=== PATIENT | female | born 1985 | race Caucasian/White ===

== ENCOUNTER 2020-06-21 20:01 | Emergency (ER) | payer OTHER ==
[~2020-06-21] VITALS: Ht 167.6 cm; Wt 79.5 kg
[2020-06-21 20:57] LABS: BASO % 1 % (0-3); EOS # 0.2 x10^3/uL (0.0-0.7); EOS % 2 % (0-3); HEMATOCRIT 41.9 % (36.0-47.0); HEMOGLOBIN 14.6 g/dL (12.0-15.5); LYMPH # 2.1 x10^3/uL (1.0-4.8); LYMPH % 23 % (24-48); MEAN CORPUSCULAR HEMOGLOBIN 37 pg (25-35); MEAN CORPUSCULAR HGB CONC 35 g/dL (31-37); MEAN CORPUSCULAR VOLUME 105 fL (79-100); MONO # 0.6 x10^3/uL (0.0-1.1); MONO % 6 % (0-9); NEUT # 6.2 x10^3uL (1.8-7.7); NEUT % 68 % (31-73); PLATELET COUNT 158 x10^3/uL (140-400); RED BLOOD COUNT 4.01 x10^6/uL (3.50-5.40); RED CELL DISTRIBUTION WIDTH 12.9 % (11.5-14.5); WHITE BLOOD COUNT 9.1 x10^3/uL (4.0-11.0)
[2020-06-21 21:06] LABS: CALCIUM 8.9 mg/dL (8.5-10.1); CREATININE 0.6 mg/dL (0.6-1.0); GFR 115.9; POTASSIUM 3.6 mmol/L (3.5-5.1)
--- NOTE | 2020-06-21 21:17 | PHYS DOC ---
Past History Past Medical History: No Pertinent History, Anxiety, Bronchitis, Hypertension Past Surgical History: No Surgical History Smoking: Non-smoker Alcohol Use: None General Adult EDM: Chief Complaint: CHEST PAIN HPI: HPI: ".. I got this.. Chest pain'... Not really chest pain but squeezing discomfort in the center my chest and it has not stopped tonight.... Started about 5 PM has been somewhat constant since then...".. "It seems..like I am having a fast heart rate.." Patient is a 34 year old female who presents with above hx and complaints of chest pain/ chest discomfort. Pain is in center chest. Described as squeezing type discomfort. Has been constant since approximately 1715 hrs. Patient states felt like her heart rate was increased with the discomfort. Patient denies any previous history of cardiac problems. Does have a history of hypertension. Patient states she is having some nonproductive cough. Pain seems to be worse with deep breaths and cough. Patient states she is under some recent emotional stress. Patient denies history of trauma. Patient denies any history immunosuppression. Patient has past history of anxiety, patient did get Covid vaccination second was completed on April 05.. 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 Patient normally follows with Dr. Colbert for care. Review of Systems: Review of Systems: Constitutional: Denies fever or chills Eyes: Denies change in visual acuity HENT: Denies nasal congestion or sore throat Respiratory: Complains of nonproductive cough Cardiovascular: Complaints of chest pain. GI: Denies abdominal pain, nausea, vomiting, bloody stools or diarrhea : Denies dysuria Musculoskeletal: Denies back pain or joint pain Integument: Denies rash Neurologic: Denies headache, focal weakness or sensory changes Endocrine: Denies polyuria or polydipsia Lymphatic: Denies swollen glands Psychiatric: History of anxiety Family History: Family History: Noncontributory presentation. Current Medications: Current Meds: Current Medications Medications (Trade) Dose Ordered Sig/Roosevelt Start Time Stop Time Status Last Admin Dose Admin Aspirin (Tylor Aspirin) 325 mg 1X ONCE 06/21/20 21:30 06/21/20 21:31 Clonidine HCl (Catapres Tts-2) 1 patch 1X ONCE 06/21/20 21:30 06/21/20 21:31 Allergies: Allergies: Allergies Coded Allergies Type Severity Reaction Last Updated Verified No Known Drug Allergies 06/21/20 No Physical Exam: PE: Constitutional: Moderate acute distress, non-toxic appearance. [] HENT: Normocephalic, atraumatic, bilateral external ears normal, oropharynx moist, no oral exudates, nose normal. [] Eyes: PERRLA, EOMI, conjunctiva normal, no discharge. [] Neck: Normal range of motion, no tenderness, supple, no stridor. [] Cardiovascular: Tachycardia heart rate regular rhythm, no murmur [] Lungs & Thorax: Bilateral breath sounds equal apex with few scattered wheezes and some basilar crackles on auscultation [] Abdomen: Bowel sounds normal, soft, no tenderness, no masses, no pulsatile masses. Obese. Skin: Warm, dry, no erythema, no rash. [] Back: No tenderness, no CVA tenderness. [] Extremities: No tenderness, no cyanosis, no clubbing, ROM intact, no edema. No cording appreciated Neurologic: Alert and oriented X 3, normal motor function, normal sensory function, no focal deficits noted. [] Psychologic: Affect very anxious, judgement normal, mood normal. [] Current Patient Data: Labs: Laboratory Tests Test 06/21/20 20:18 06/21/20 21:02 White Blood Count 9.1 x10^3/uL (4.0-11.0) Red Blood Count 4.01 x10^6/uL (3.50-5.40) Hemoglobin 14.6 g/dL (12.0-15.5) Hematocrit 41.9 % (36.0-47.0) Mean Corpuscular Volume 105 fL (79-100) H Mean Corpuscular Hemoglobin 37 pg (25-35) H Mean Corpuscular Hemoglobin Concent 35 g/dL (31-37) Red Cell Distribution Width 12.9 % (11.5-14.5) Platelet Count 158 x10^3/uL (140-400) Neutrophils (%) (Auto) 68 % (31-73) Lymphocytes (%) (Auto) 23 % (24-48) L Monocytes (%) (Auto) 6 % (0-9) Eosinophils (%) (Auto) 2 % (0-3) Basophils (%) (Auto) 1 % (0-3) Neutrophils # (Auto) 6.2 x10^3uL (1.8-7.7) Lymphocytes # (Auto) 2.1 x10^3/uL (1.0-4.8) Monocytes # (Auto) 0.6 x10^3/uL (0.0-1.1) Eosinophils # (Auto) 0.2 x10^3/uL (0.0-0.7) Basophils # (Auto) 0.0 x10^3/uL (0.0-0.2) Sodium Level 137 mmol/L (136-145) Potassium Level 3.6 mmol/L (3.5-5.1) Chloride Level 100 mmol/L (98-107) Carbon Dioxide Level 25 mmol/L (21-32) Anion Gap 12 (6-14) Blood Urea Nitrogen 4 mg/dL (7-20) L Creatinine 0.6 mg/dL (0.6-1.0) Estimated GFR (Cockcroft-Gault) 115.9 Glucose Level 248 mg/dL (70-99) H Calcium Level 8.9 mg/dL (8.5-10.1) POC Urine HCG, Qualitative hcg negative (Negative) Vital Signs: Vital Signs Date Time Temp Pulse Resp B/P (MAP) Pulse Ox O2 Delivery O2 Flow Rate FiO2 06/21/20 20:53 98.0 98 16 167/96 (119) 94 06/21/20 20:25 Room Air EKG: EKG: My interpretation EKG shows a sinus rhythm at 98 bpm. No findings of acute STEMI with contralateral changes. Radiology/Procedures: Radiology/Procedures: [][address] [address] IMAGING REPORT Signed PATIENT: SHUBHAM RPIETO ACCOUNT: [id number] : 1985 LOCATION: ER AGE: 34 SEX: F EXAM STATUS: REG ER ORD. PHYSICIAN: DEMETRIUS GUARDADO MD REASON: Chest pain PROCEDURE: CHEST PA & LATERAL Chest, PA and Lateral: Technique: PA and lateral views of the chest were obtained. History: Chest pain. Comparison: None. Findings: The heart and pulmonary vasculature appear within normal limits. Mild bibasilar lung atelectasis or infiltrates.. The pleural margins are clear. Impression: Mild bibasilar lung atelectasis or infiltrates. Electronically signed by: Osvaldo Grimm MD (06/21/2020 9:15 PM) [id number] DICTATED AND SIGNED BY: OSVALDO GRIMM MD DATE: 06/21/202112 CC: DEMETRIUS GUARDADO MD; ESTELLA COLBERT MD ~MTH0 0 Heart Score: C/O Chest Pain: Yes HEART Score for Chest Pain: HEART Score for Chest Pain Response (Comments) Value History Slighlty/Non-Suspicious 0 ECG Normal 0 Age < 45 0 Risk Factors 1 or 2 Risk Factors 1 Troponin < Normal Limit 0 Total 1 Risk Factors: Risk Factors: DM, Current or recent (<one month) smoker, HTN, HLP, family history of CAD, obesity. Risk Scores: Score 0 - 3: 2.5% MACE over next 6 weeks - Discharge Home Score 4 - 6: 20.3% MACE over next 6 weeks - Admit for Clinical Observation Score 7 - 10: 72.7% MACE over next 6 weeks - Early Invasive Strategies Course & Med Decision Making: Course & Med Decision Making Pertinent Labs and Imaging studies reviewed. (See chart for details) Patient infectious isolation until results of Covid test comes back. Patient use MDI 2 puffs 4 times a day. Patient take Zithromax 250 mg a day. Follow-up with Dr. Colbert and review ED work-up. Take Tylenol and ibuprofen for pain. Return if any concerns. Wear clonidine patch until follow-up. Impression: 1. Chest wall pain/pleurisy 2. Atypical pneumonia suspect viral 3. Macrocytic and hyperchromic indices 105/37 4. Accelerated hypertension 5. Diabetes-glucose 248 [] Dragon Disclaimer: Dragon Disclaimer: This electronic medical record was generated, in whole or in part, using a voice recognition dictation system. Departure Departure: Referrals: ESTELLA COLBERT MD (PCP) Scripts Azithromycin (ZITHROMAX) 250 Mg Tablet 250 MG PO DAILY for ANTI-BIOTIC, #5 TAB 0 Refills Prov: DEMETRIUS GUARDADO MD 06/21/20 Dragon Disclaimer This chart was dictated in whole or in part using Voice Recognition software in a busy, high-work load, and often noisy Emergency Department environment. It may contain unintended and wholly unrecognized errors or omissions. DEMETRIUS GUARDADO MD Jun 21, 2020 21:17
[2020-06-21 21:25] LABS: BARBITURATES NEG (NEG); BENZODIAZEPINES NEG (NEG); CANNABINOIDS NEG (NEG); COCAINE NEG (NEG); METHADONE NEG (NEG); OPIATES NEG (NEG); PHENCYCLIDINE NEG (NEG)
[2020-06-21 21:26] LABS: AMPHETAMINE/METHAMPHETAMINE NEG (NEG)
[2020-06-21] MEDS ORDERED: cloNIDine TTS-2 1 PATCH PATCH TD ONE (21:30)
[2020-06-21] MEDS ORDERED: ASPIRIN 325 MG TABLET PO ONE (21:30)
[2020-06-21 22:12] LABS: BILIRUBIN,URINE NEG (NEG); CLARITY,URINE CLEAR; COLOR,URINE AMBER; GLUCOSE,URINE 250 mg/dL (NEG); NITRITE,URINE NEG (NEG)
[2020-06-21 22:13] LABS: BACTERIA,URINE 0 /HPF (0-FEW); RBC,URINE 0 /HPF (0-2); SQUAMOUS EPITHELIAL CELL,UR OCC /LPF; WBC,URINE 0 /HPF (0-4)
[2020-06-21] MEDS ORDERED: ALBUTEROL SULFATE 8GM INHALER. INH ONE (22:30)
[2020-06-21] MEDS ORDERED: AZITHROMYCIN 250 MG TABLET. PO ONE (22:30)
[2020-06-21] MEDS ORDERED: AZIT250T PO (22:59)
[2020-06-22 01:10] VITALS: BP 160/90
--- NOTE | 2020-06-24 06:32 | EKG ---
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
== END 2020-06-22 01:22 | disposition home or self-care (01) ==
LOC: ER 20:01
DX: J18.9 Pneumonia, unspecified organism (principal); D64.89 Other specified anemias; I10 Essential (primary) hypertension; E11.9 Type 2 diabetes mellitus without complications; F41.9 Anxiety disorder, unspecified
CPT/HCPCS: 36415; 71046; 80048; 80307; 81001; 81025; 85025; 85379; 93005; 94640; 99284; 99285; 94664

== ENCOUNTER 2020-06-25 19:29 | Emergency (ER) | payer OTHER ==
[~2020-06-25] VITALS: Ht 167.6 cm; Wt 79.5 kg
[~2020-06-25 19:29] MED LIST: AZIT250T PO
[2020-06-25] MEDS ORDERED: ONDANSETRON PF 4 MG/2 ML VIAL. ONE (19:50)
--- NOTE | 2020-06-25 20:18 | PHYS DOC ---
Past History Past Medical History: No Pertinent History, Anxiety, Bronchitis, Depression, Hypertension Past Surgical History: No Surgical History Smoking: Non-smoker Alcohol Use: None General Adult EDM: Chief Complaint: HYPERTENSION HPI: HPI: ".. I keep feeling .. like my heart is beating fast... and my hypertension is up... " ".. It the same as the other day...",..Today I got a letter from school .. that my daughter who is in the 10 th grade has been removed from the computer home education program,... because she has never signed on to complete any studies.." Patient is a 34 year old female who presents with above hx and complaints feelings of tachycardia. Patient relates that she is under increased stressors at work, home and financially. 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 Was seen previously on 06/21/2020 for similar type presentation. Does have a history of anxiety, depression bronchitis, hypertension. Patient normally follows with Dr. Glaser. Patient has been having some issues with insomnia and drinking alcohol with 2 8 and sleep onset. Patient denies any history of previous PR. Patient presents tonight with similar type presentation as 413 2020. Patient denies any fever or chills. Patient has been compliant with her use of Zithromax for her bronchitis and MDI treatments for atypical basilar atelectasis/atypical pneumonia on previous ED evaluation on June 21. Patient has completed Covid vaccinations last completed in March 2020. Patient is exposed to ill patients working at the residential. No history of trauma. No history of travel. Patient states home stressor as daughter has been recently dropped from the home school program because she has not been complaining any computer assignments. Patient has kept her daughter on home school because of worries that she may be exposed to Covid and then she would be placed on home isolation because of job requirements. Patient does not smoke. Review of Systems: Review of Systems: Constitutional: Denies fever or chills Eyes: Denies change in visual acuity HENT: Denies nasal congestion or sore throat Respiratory: Denies cough or shortness of breath Cardiovascular: Complaints of hypertension and tachycardia GI: Denies abdominal pain, nausea, vomiting, bloody stools or diarrhea : Denies dysuria Musculoskeletal: Denies back pain or joint pain Integument: Denies rash Neurologic: Denies headache, focal weakness or sensory changes Endocrine: Denies polyuria or polydipsia Lymphatic: Denies swollen glands Psychiatric: Complains of depression and anxiety. No suicidal ideation. No homicidal ideation. Family History: Family History: Noncontributory to presentation Current Medications: Current Meds: Current Medications Medications (Trade) Dose Ordered Sig/Roosevelt Start Time Stop Time Status Last Admin Dose Admin Ondansetron HCl (Zofran) 4 mg STK-MED ONCE 06/25/20 19:50 06/25/20 19:50 DC Allergies: Allergies: Allergies Coded Allergies Type Severity Reaction Last Updated Verified No Known Drug Allergies 06/21/20 No Physical Exam: PE: Constitutional: Moderate acute emotional distress, non-toxic appearance. [] HENT: Normocephalic, atraumatic, bilateral external ears normal, oropharynx moist, no oral exudates, nose normal. [] Eyes: PERRLA, EOMI, conjunctiva normal, no discharge. [] Neck: Normal range of motion, no tenderness, supple, no stridor. [] Cardiovascular: Tachycardia heart rate, regular rhythm, no murmur [] Lungs & Thorax: Bilateral breath sounds equal apex and basilar crackles and wheezes on auscultation [] Abdomen: Bowel sounds normal, soft, no tenderness, no masses, no pulsatile masses. Obese. Skin: Warm, dry, no erythema, no rash. [] Back: No tenderness, no CVA tenderness. [] Extremities: No tenderness, no cyanosis, no clubbing, ROM intact, no edema. No cording appreciated. Neurologic: Alert and oriented X 3, normal motor function, normal sensory function, no focal deficits noted. [] Psychologic: Affect very anxious, judgement normal, mood normal. [] EKG: EKG: My interpretation EKG shows sinus tachycardia 103 bpm. No findings of acute STEMI of contralateral changes. [] At 1938 hrs. My interpretation EKG #2 shows a sinus rhythm at 89 bpm. Slightly prolonged QT interval at 392 ms. QTc interval 484 ms. At 11 minutes/am Radiology/Procedures: Radiology/Procedures: [][address] [address] IMAGING REPORT Signed PATIENT: SHUBHAM PRIETO ACCOUNT: [id number] : 1985 LOCATION: ER AGE: 34 SEX: F EXAM STATUS: REG ER ORD. PHYSICIAN: DEMETRIUS GUARDADO MD REASON: cp PROCEDURE: PORTABLE CHEST 1V Study: XR CHEST 1V Indication: Chest pain. Comparison: 06/21/2020 Findings: Unchanged cardiomediastinal silhouette and roberto. No newly seen focal airspace abnormality. The aeration pattern of both lungs is not significantly different from the recent comparison. No layering effusion or pneumothorax. Impression: No acute radiographic abnormality of the chest. No relevant change from the fourth 2020 comparison. Electronically signed by: CASSIE VALLE MD (06/25/2020 11:38 PM) [facility] DICTATED AND SIGNED BY: CASSIE VALLE MD DATE: 06/25/20 6427 CC: DEMETRIUS GUARDADO MD; ESTELLA THOMPSON MD ~MTH0 0 Heart Score: C/O Chest Pain: Yes HEART Score for Chest Pain: HEART Score for Chest Pain Response (Comments) Value History Slighlty/Non-Suspicious 0 ECG Normal 0 Age < 45 0 Risk Factors 1 or 2 Risk Factors 1 Troponin < Normal Limit 0 Total 1 Risk Factors: Risk Factors: DM, Current or recent (<one month) smoker, HTN, HLP, family history of CAD, obesity. Risk Scores: Score 0 - 3: 2.5% MACE over next 6 weeks - Discharge Home Score 4 - 6: 20.3% MACE over next 6 weeks - Admit for Clinical Observation Score 7 - 10: 72.7% MACE over next 6 weeks - Early Invasive Strategies Course & Med Decision Making: Course & Med Decision Making Pertinent Labs and Imaging studies reviewed. (See chart for details) Patient follow-up primary care. Patient consider outpatient stress testing. Suspect large component of patient's chest pain for the and tachycardia episodes related to her stress.-Home, work, financial, family situation. Continue MDIs and Zithromax. Instructed. Take a daily baby aspirin. Return if any concerns. Wear clonidine patch until follow-up with Dr. Thompson. Push fruit juices. Push hydration. Return if any concerns. Impression: 1. Sinus tachycardia 2. Accelerated hypertension 3. Mild hypokalemia 3.3 4.. Elevated glucose 140 5. Mild leukocytosis 11.1 6. Macrocytic hyper chromic indices 106/36 7. History of bronchitis/atypical pneumonia 8. Mild elevation in AST 1 5015 and ALT 84 and alk phos 133 9. Hx. of Anxiety and depression [] Dragon Disclaimer: Dragon Disclaimer: This electronic medical record was generated, in whole or in part, using a voice recognition dictation system. Departure Departure: Referrals: ESTELLA THOMPSON MD (PCP) [place] Disclaimer This chart was dictated in whole or in part using Voice Recognition software in a busy, high-work load, and often noisy Emergency Department environment. It may contain unintended and wholly unrecognized errors or omissions. Dragon Disclaimer This chart was dictated in whole or in part using Voice Recognition software in a busy, high-work load, and often noisy Emergency Department environment. It may contain unintended and wholly unrecognized errors or omissions. DEMETRIUS GUARDADO MD Jun 25, 2020 20:18
[2020-06-25] MEDS ORDERED: FOLIC ACID 1 MG TABLET PO ONE (21:15)
[2020-06-25] MEDS ORDERED: ONDANSETRON PF 4 MG/2 ML VIAL. IVP ONE (21:15)
[2020-06-25] MEDS ORDERED: LORazepam 1 MG TABLET PO ONE (21:15)
[2020-06-25] MEDS ORDERED: MVI, ADULT NO.4 WITH VIT K 10 ML, THIAMINE INJ 100 MG in IV RINGERS SOLUTION,LACTATED 1... IV ONE (21:15)
[2020-06-25] MEDS ORDERED: THIAMINE 200 MG/2 ML VIAL. IV ONE (21:52)
[2020-06-25] MEDS ORDERED: IV RINGERS SOLUTION,LACTATED 1,000 ML IV SCH (22:00)
[2020-06-25] MEDS ORDERED: ASPIRIN CHEWABLE 81 MG TABLET. PO ONE (22:00)
--- NOTE | 2020-06-25 22:05 | EKG ---
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
[2020-06-25 22:15] LABS: BASO # 0.1 x10^3/uL (0.0-0.2); BASO % 1 % (0-3); EOS # 0.3 x10^3/uL (0.0-0.7); EOS % 3 % (0-3); HEMATOCRIT 41.1 % (36.0-47.0); HEMOGLOBIN 14.2 g/dL (12.0-15.5); LYMPH # 3.8 x10^3/uL (1.0-4.8); LYMPH % 35 % (24-48); MEAN CORPUSCULAR HEMOGLOBIN 36 pg (25-35); MEAN CORPUSCULAR HGB CONC 35 g/dL (31-37); MEAN CORPUSCULAR VOLUME 106 fL (79-100); MONO # 0.7 x10^3/uL (0.0-1.1); MONO % 6 % (0-9); NEUT # 6.2 x10^3uL (1.8-7.7); NEUT % 56 % (31-73); PLATELET COUNT 163 x10^3/uL (140-400); RED BLOOD COUNT 3.89 x10^6/uL (3.50-5.40); RED CELL DISTRIBUTION WIDTH 12.8 % (11.5-14.5); WHITE BLOOD COUNT 11.1 x10^3/uL (4.0-11.0)
[2020-06-25 22:39] LABS: CALCIUM 8.6 mg/dL (8.5-10.1); CREATININE 0.7 mg/dL (0.6-1.0); POTASSIUM 3.3 mmol/L (3.5-5.1)
[2020-06-25 22:53] LABS: ALBUMIN 3.6 g/dL (3.4-5.0); ALBUMIN/GLOBULIN RATIO 0.8 (1.0-1.7); DIRECT BILIRUBIN 0.3 mg/dL (0.0-0.2); MAGNESIUM 1.4 mg/dL (1.8-2.4); TOTAL BILIRUBIN 0.6 mg/dL (0.2-1.0); TOTAL PROTEIN 7.9 g/dL (6.4-8.2)
[2020-06-25 22:55] LABS: BARBITURATES NEG (NEG); BENZODIAZEPINES NEG (NEG); CANNABINOIDS NEG (NEG); COCAINE NEG (NEG); METHADONE NEG (NEG); OPIATES NEG (NEG); PHENCYCLIDINE NEG (NEG)
[2020-06-25 22:59] LABS: AMPHETAMINE/METHAMPHETAMINE NEG (NEG)
[2020-06-25 23:07] LABS: BILIRUBIN,URINE SMALL (NEG); CLARITY,URINE CLOUDY; COLOR,URINE YELLOW; GLUCOSE,URINE NEG (NEG)
[2020-06-25 23:08] LABS: BACTERIA,URINE FEW /HPF (0-FEW); NITRITE,URINE NEG (NEG); RBC,URINE >40 /HPF (0-2); SQUAMOUS EPITHELIAL CELL,UR MANY /LPF; UROBILINOGEN,URINE 0.2 mg/dL (0.2 mg/dL)
--- NOTE | 2020-06-25 23:40 | RAD ---
Study: XR CHEST 1V Indication: Chest pain. Comparison: 06/21/2020 Findings: Unchanged cardiomediastinal silhouette and roberto. No newly seen focal airspace abnormality. The aeration pattern of both lungs is not significantly dif ferent from the recent comparison. No layering effusion or pneumothorax. Impression: No acute radiographic abnormality of the chest. No relevant change from the 2020 comparison . Electronically signed by: CASSIE VALLE MD (06/25/2020 11:38 PM) [facility]
[2020-06-25] MEDS ORDERED: cloNIDine TTS-2 1 PATCH PATCH TD ONE (23:45)
[2020-06-26 01:22] VITALS: BP 146/91
--- NOTE | 2020-06-26 01:29 | EKG ---
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
== END 2020-06-26 01:32 | disposition home or self-care (01) ==
LOC: ER 19:29
DX: R00.0 Tachycardia, unspecified (principal); I10 Essential (primary) hypertension; E87.6 Hypokalemia; R73.9 Hyperglycemia, unspecified; D72.829 Elevated white blood cell count, unspecified; D50.9 Iron deficiency anemia, unspecified; R79.89 Other specified abnormal findings of blood chemistry; F41.9 Anxiety disorder, unspecified; F32.9 Major depressive disorder, single episode, unspecified
CPT/HCPCS: 36415; 71045; 80048; 80053; 80076; 80307; 81001; 82550; 83690; 83735; 83880; 84443; 84484; 84702; 85025; 85379; 85610; 85730; 93005; 96365; 96366; 99285; G0480; J7120

== ENCOUNTER 2021-01-25 14:58 | Emergency (ER) | payer OTHER ==
[~2021-01-25] VITALS: Ht 170.2 cm; Wt 115.0 kg
[2021-01-25] MEDS ORDERED: ONDANSETRON PF 4 MG/2 ML VIAL. IVP ONE (15:45)
[2021-01-25] MEDS ORDERED: MVI, ADULT NO.4 WITH VIT K 10 ML, FOLIC ACID INJ 1 MG, THIAMINE INJ 100 MG in IV RINGER... IV ONE (16:00)
--- NOTE | 2021-01-25 16:11 | EKG ---
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
[2021-01-25 16:29] LABS: BASO % 0 % (0-3); EOS % 1 % (0-3); HEMATOCRIT 43.9 % (36.0-47.0); HEMOGLOBIN 15.3 g/dL (12.0-15.5); LYMPH # 0.9 x10^3/uL (1.0-4.8); LYMPH % 14 % (24-48); MEAN CORPUSCULAR HEMOGLOBIN 36 pg (25-35); MEAN CORPUSCULAR HGB CONC 35 g/dL (31-37); MEAN CORPUSCULAR VOLUME 105 fL (79-100); MONO # 0.6 x10^3/uL (0.0-1.1); MONO % 9 % (0-9); NEUT # 5.1 x10^3uL (1.8-7.7); NEUT % 76 % (31-73); PLATELET COUNT 128 x10^3/uL (140-400); RED CELL DISTRIBUTION WIDTH 13.8 % (11.5-14.5); WHITE BLOOD COUNT 6.7 x10^3/uL (4.0-11.0)
[2021-01-25 16:32] LABS: ACETAMIN < 2.0 mcg/mL (10-30); ETHANOL 113 mg/dL (0-10); SALIC < 2.8 mg/dL (2.8-20.0)
[2021-01-25 16:34] LABS: ALBUMIN 4.2 g/dL (3.4-5.0); ALBUMIN/GLOBULIN RATIO 0.9 (1.0-1.7); CALCIUM 9.5 mg/dL (8.5-10.1); CREATININE 0.8 mg/dL (0.6-1.0); GFR 82.6; MAGNESIUM 1.3 mg/dL (1.8-2.4); PHOSPHORUS 3.2 mg/dL (2.6-4.7); TOTAL BILIRUBIN 1.3 mg/dL (0.2-1.0); TOTAL PROTEIN 8.7 g/dL (6.4-8.2)
[2021-01-25 16:35] LABS: BARBITURATES NEG (NEG); BENZODIAZEPINES NEG (NEG); CANNABINOIDS NEG (NEG); COCAINE NEG (NEG); METHADONE NEG (NEG); OPIATES NEG (NEG); PHENCYCLIDINE NEG (NEG)
[2021-01-25 16:44] LABS: AMPHETAMINE/METHAMPHETAMINE NEG (NEG)
[2021-01-25 16:44] LABS: POTASSIUM 2.8 mmol/L (3.5-5.1)
[2021-01-25] MEDS ORDERED: POTASSIUM CHLORIDE 20 MEQ TABLET.ER. PO ONE ×2 (16:45→19:00)
--- NOTE | 2021-01-25 16:46 | RAD ---
EXAM: Chest, single view. HISTORY: Alcohol withdrawal. COMPARISON: 06/25/2020 FINDINGS: A frontal view of the chest is obtained. There is no infiltrate, pleural effusion or pneumo thorax. There is mild elevation of the right hemidiaphragm. The heart is normal in size. IMPRESSION: No acute pulmonary finding. Electronically signed by: Kori Guerrier MD (01/25/2021 4:44 PM) [id number]
[2021-01-25 16:59] LABS: BACTERIA,URINE MANY /HPF (0-FEW); BILIRUBIN,URINE MOD (NEG); CLARITY,URINE CLEAR; COLOR,URINE YELLOW; GLUCOSE,URINE NEG (NEG); NITRITE,URINE POS (NEG); SQUAMOUS EPITHELIAL CELL,UR MANY /LPF
[2021-01-25] MEDS ORDERED: METOCLOPRAMIDE HCL 10 MG/2 ML VIAL. IVP ONE (18:30)
--- NOTE | 2021-01-25 18:47 | PHYS DOC ---
Past History Past Medical History: No Pertinent History, Anxiety, Bronchitis, Depression, Hypertension (MARTÍN LEON APRN) Past Surgical History: No Surgical History (MARTÍN LEON APRN) Smoking: Non-smoker Additional Smoking Information: vape Alcohol Use: Heavy (MARTÍN LEON APRN) Adult General Chief Complaint Chief Complaint: WITHDRAWAL HPI HPI Patient is a 35-year-old female who presents emergency department requesting alcohol detox. Patient reports she [facility] who gave her resources for alcohol detox, patient reports she called all of the places and they all have refused her telling her to come straight to the emergency department for alcohol detox. Patient reports drinking 1 pint of whiskey every day for the last 10 years. Reports her last drink was at noon today. Patient complains of nausea, denies vomiting, denies visual disturbances or tactile disturbances, reports she was sweaty and had tremors however is not having at this time. Reports her last menstrual cycle was 1 week ago with normal duration of flow. Patient denies smoking cigarettes, states she does vape, denies illicit drug use. Patient denies homicidal or suicidal ideation. Patient reports she lives at home with her 16-year-old daughter and her stepmother. Patient denies other physical complaints or physical concerns. (MARTÍN LEON APRN) Review of Systems Review of Systems 14 body systems of review of systems have been reviewed. See HPI for pertinent positives and negative responses, otherwise all other systems are negative, nonpertinent or noncontributory. Constitutional: Negative except as outlined in HPI above. Skin: Negative except as outlined in HPI above. Eyes: Negative except as outlined in HPI above. HENT: Negative except as outlined in HPI above. Respiratory: Negative except as outlined in HPI above. Cardiovascular: Negative except as outlined in HPI above. GI: Negative except as outlined in HPI above. : Negative except as outlined in HPI above. Musculoskeletal: Negative except as outlined in HPI above. Integument: Negative except as outlined in HPI above. Neurologic: Negative except as outlined in HPI above. Endocrine: Negative except as outlined in HPI above. Lymphatic: Negative except as outlined in HPI above. Psychiatric: Negative except as outlined in HPI above. (MARTÍN LEON APRN) Current Medications Current Medications Current Medications Medications (Trade) Dose Ordered Sig/Roosevelt Start Time Stop Time Status Last Admin Dose Admin Lorazepam (Ativan Inj) 1 mg 1X ONCE 01/25/21 15:45 01/25/21 15:58 DC 01/25/21 16:33 1 MG Metoclopramide HCl (Reglan Vial) 10 mg 1X ONCE 01/25/21 18:30 01/25/21 18:32 DC 01/25/21 18:39 10 MG Multivitamins/ Minerals 10 ml/ Folic Acid 1 mg/ Thiamine HCl 100 mg/Lactated Ringer's 1,011.3 ml @ 1,011.3 mls/hr 1X ONCE 01/25/21 16:00 01/25/21 16:59 DC 01/25/21 16:33 1,011.3 MLS/HR Ondansetron HCl (Zofran) 4 mg 1X ONCE 01/25/21 15:45 01/25/21 15:58 DC 01/25/21 16:33 4 MG Potassium Chloride (Klor-Con) 40 meq 1X ONCE 01/25/21 16:45 01/25/21 16:47 DC 01/25/21 18:11 40 MEQ (MARTÍN LEON APRN) Allergies Allergies Allergies Coded Allergies Type Severity Reaction Last Updated Verified No Known Drug Allergies 06/21/20 No (MARTÍN LEON APRN) Physical Exam Physical Exam Constitutional: Well developed, well nourished, no acute distress, non-toxic leigh ann earance. 35-year-old female in no apparent distress. HENT: Normocephalic, atraumatic. Eyes: Conjunctiva normal, no discharge. Neck: Normal range of motion, no stridor. Cardiovascular: No cyanosis appreciated, distal cap refill less than 2 seconds. Lungs & Thorax: Patient is in no respiratory distress, no audible adventitious lung sounds appreciated. Abdomen: Nontender, no abnormalities noted. Skin: Warm, dry, no erythema, no rash. Back: No tenderness, no deformities. Extremities: No tenderness, no cyanosis, no clubbing, ROM intact, no edema. Neurologic: Alert and oriented X 3, normal motor function, normal sensory function, no focal deficits noted. Psychologic: Affect normal, judgement normal, mood normal. (MARTÍN LEON APRN) Current Patient Data Vital Signs Vital Signs Date Time Temp Pulse Resp B/P (MAP) Pulse Ox O2 Delivery O2 Flow Rate FiO2 01/25/21 15:22 98.6 100 20 168/121 (137) 98 Room Air Lab Results Laboratory Tests Test 01/25/21 15:55 01/25/21 15:56 01/25/21 16:04 01/25/21 16:15 White Blood Count 6.7 x10^3/uL (4.0-11.0) Red Blood Count 4.20 x10^6/uL (3.50-5.40) Hemoglobin 15.3 g/dL (12.0-15.5) Hematocrit 43.9 % (36.0-47.0) Mean Corpuscular Volume 105 fL (79-100) H Mean Corpuscular Hemoglobin 36 pg (25-35) H Mean Corpuscular Hemoglobin Concent 35 g/dL (31-37) Red Cell Distribution Width 13.8 % (11.5-14.5) Platelet Count 128 x10^3/uL (140-400) L Neutrophils (%) (Auto) 76 % (31-73) H Lymphocytes (%) (Auto) 14 % (24-48) L Monocytes (%) (Auto) 9 % (0-9) Eosinophils (%) (Auto) 1 % (0-3) Basophils (%) (Auto) 0 % (0-3) Neutrophils # (Auto) 5.1 x10^3uL (1.8-7.7) Lymphocytes # (Auto) 0.9 x10^3/uL (1.0-4.8) L Monocytes # (Auto) 0.6 x10^3/uL (0.0-1.1) Eosinophils # (Auto) 0.0 x10^3/uL (0.0-0.7) Basophils # (Auto) 0.0 x10^3/uL (0.0-0.2) Sodium Level 140 mmol/L (136-145) Potassium Level 2.8 mmol/L (3.5-5.1) *L Chloride Level 96 mmol/L (98-107) L Carbon Dioxide Level 30 mmol/L (21-32) Anion Gap 14 (6-14) Blood Urea Nitrogen 4 mg/dL (7-20) L Creatinine 0.8 mg/dL (0.6-1.0) Estimated GFR (Cockcroft-Gault) 82.6 BUN/Creatinine Ratio 5 (6-20) L Glucose Level 119 mg/dL (70-99) H Calcium Level 9.5 mg/dL (8.5-10.1) Phosphorus Level 3.2 mg/dL (2.6-4.7) Magnesium Level 1.3 mg/dL (1.8-2.4) L Total Bilirubin 1.3 mg/dL (0.2-1.0) H Aspartate Amino Transferase (AST) 245 U/L (15-37) H Alanine Aminotransferase (ALT) 166 U/L (14-59) H Alkaline Phosphatase 114 U/L (46-116) Troponin I High Sensitivity 5 ng/L (4-50) Total Protein 8.7 g/dL (6.4-8.2) H Albumin 4.2 g/dL (3.4-5.0) Albumin/Globulin Ratio 0.9 (1.0-1.7) L Lipase 63 U/L (73-393) L Salicylates Level < 2.8 mg/dL (2.8-20.0) L Salicylate Last Dose Date Salicylate Last Dose Time Acetaminophen Level < 2.0 mcg/mL (10-30) L Acetaminophen Last Dose Date Acetaminophen Last Dose Time Ethyl Alcohol Level 113 mg/dL (0-10) H SARS-CoV-2 Antigen (Rapid) Negative (NEGATIVE) Urine Collection Type Unknown Urine Color Yellow Urine Clarity Clear Urine pH 6.5 Urine Specific [place] 1.020 Urine Protein >100 mg/dl (NEG-TRACE) Urine Glucose (UA) Neg mg/dL (NEG) Urine Ketones (Stick) Trace mg/dL (NEG) Urine Blood Mod (NEG) Urine Nitrite Pos (NEG) Urine Bilirubin Mod (NEG) Urine Urobilinogen Dipstick 2.0 mg/dL (0.2 mg/dL) Urine Leukocyte Esterase Neg (NEG) Urine RBC 6-10 /HPF (0-2) Urine WBC 5-10 /HPF (0-4) Urine Squamous Epithelial Cells Many /LPF Urine Bacteria Many /HPF (0-FEW) Urine Mucus Marked /LPF Urine Opiates Screen Neg (NEG) Urine Methadone Screen Neg (NEG) Urine Barbiturates Neg (NEG) Urine Phencyclidine Screen Neg (NEG) Urine Amphetamine/Methamphetamine Neg (NEG) Urine Benzodiazepines Screen Neg (NEG) Urine Cocaine Screen Neg (NEG) Urine Cannabinoids Screen Neg (NEG) Urine Ethyl Alcohol Pos (NEG) POC Urine HCG, Qualitative hcg negative (Negative) (MARTÍN LEON APRN) EKG EKG [] (MARTÍN LEON APRN) Radiology/Procedures Radiology/Procedures EKG performed at 1556 by ED nursing staff shows a normal sinus rhythm without other ectopy, heart rate 68 bpm, NM interval 0.142, QTc interval 0.472, no acute STEMI, n ACS, no acute ischemia appreciated, EKG interpreted by ED attending physician Dr. Jackson. (MARTÍN LEON APRN) Heart Score C/O Chest Pain: No Risk Factors: Risk Factors: DM, Current or recent (<one month) smoker, HTN, HLP, family history of CAD, obesity. Risk Scores: Risk Factors: DM, Current or recent (<one month) smoker, HTN, HLP, family history of CAD, obesity. (MARTÍN LEON APRN) Course & Med Decision Making Course & Med Decision Making Pertinent Labs and Imaging studies reviewed. (See chart for details) 35-year-old female, vital signs reviewed, reports emergency room requesting alcohol detox. Patient reports a 10-year history of alcoholism drinking every day at least 1 pint of whiskey. Patient's physical appearance and examination is not consistent with an alcoholic patient. Patient's CIWA score equals 3. Related to patient's request, will order CBC, CMP, chest x-ray, EKG, urine drug screen, alcohol level, salicylate level, Tylenol level, PAT team consult. 1 L banana bag, 4 mg IV Zofran, 1 mg Ativan. Discussed patient case with PAT merchandising team lead Viki who states she will come evaluate patient. Patient is EKG unremarkable, chest x-ray unremarkable, patient does have hypokalemia at 2.8, will give 40 mg p.o. potassium. PAT merchandising team lead Viki reports there is no current detox facility available for the patient, states patient can go home, she will follow up with patient tomorrow to secure a detox facility for her. Discussed this with patient who is amenable to ED discharge planning. Patient complains of continued nausea and anxiety, will give 10 mg of Reglan IV, 1 mg Ativan p.o. will give additional 40 mg p.o. potassium. Patient did not have any vomiting in the emergency department, did dry heave periodically. CIWA scale remains a 3 upon reeva luation. Very low likelihood of alcohol withdrawal seizures, alcohol was 113 at time of lab draw. Patient has been here several hours while PAT merchandising team lead has attempted to secure a detox facility. There has been no neurological change. No tremors, no diaphoresis. There was no actual vomiting. Patient has been acting appropriately during her ER stay, continues to deny homicidal or suicidal ideation. Discussed with the patient all findings and diagnostic testing as well as the need to follow-up with their primary care provider for further evaluation and treatment or return to the ED if any new or worsening symptoms. Strict return precautions were also discussed at length, the patient voiced understanding and agreement with the discharge planning. The patient was nontoxic in appearance, in no apparent distress, and hemodynamically stable at the time of disposition. (MARTÍN LEON APRN) Course & Med Decision Making I was the Attending physician on the above date of service of this patient. This patient was evaluated, examined, treated, and dispositioned from the emergency department by the mid-level practitioner. Although I was working at the time , no assistance was requested. Electronically signed, Damaris Jackson DO (DAMARIS JACKSON DO) Manavon Disclaimer Dragrajiv Disclaimer This electronic medical record was generated, in whole or in part, using a voice recognition dictation system. (MARTÍN LEON APRN) Departure Departure: Impression: Primary Impression: Alcoholism Additional Impressions: Hypokalemia Nausea Disposition: 01 HOME / SELF CARE / HOMELESS Condition: GOOD Referrals: ESTELLA COLBERT MD (PCP) Patient Instructions: Alcohol Problems, Hypokalemia Additional Instructions: You were seen today in the emergency department seeking alcohol detox. You were evaluated by a psychiatric professional who has attempted to secure a alcohol detox facility for you to admit to. She has been unable to do so after several attempts. The PAT merchandising team lead Viki will contact you tomorrow at the phone number you left with her to continue her search for a alcohol detox facility for you. Your lab work was concerning for a low potassium level. You were given potassium in the emergency department today, please obtain a potassium supplement [id number] at a local pharmacy and take daily. You may also try eating potassium rich foods. I have prescribed for you an antinausea medicine, please take as directed for nausea. If you are not nauseated, you do not need to take this medication. Please return to the emergency department for worsening symptoms or other concerns. Thank you for visiting our Emergency Department. It was a pleasure taking care of you today in the emergency department and we appreciate you trusting us with your care. If any additional problems come up don't hesitate to return to visit us. Please follow up with your primary care provider so they can plan additional care if needed and know about the problem that you had. If symptoms worsen come back to the Emergency Department. Any concerning symptoms that start such as chest pain, shortness of air, weakness or numbness on one side of the body, running high fevers or any other concerning symptoms return to the ER. EMERGENCY DEPARTMENT GENERAL DISCHARGE INSTRUCTIONS Thank you for coming to [facility] (ED) today and trusting us with you care. We trust that you had a positivie experience in our Emergency Department. If you wish to speak to the department management, you may call the director at [phone]. YOUR FOLLOW UP INSTRUCTIONS ARE FOLLOWS: 1. Do you have a private Doctor? If you do not have a private doctor, please ask for a resource list of physicians or clinics that may be able to assist you with follow up care. 2. The Emergency Physician has interpreted your x-rays. The X-Ray specialist will also review them. If there is a change in the findings, you will be notified in 48 hours when at all possible. 3. A lab test or culture has been done, your results will be reviewed and you will be notified if you need a change in treatment. ADDITIONAL INSTRUCTIONS AND INFORMATION: 1. Your care today has been supervised by a physician who is specially trained in emergency care. Many problems require more than one evaluation for a complete diagnosis and treatment. We recommend that you schedule your follow up appointment as recomm ended to ensure complete treatment of you illness or injury. If you are unable to obtain follow up care and continue to have a problem, or if your condition worsens, we recommend that you return to the ED. 2. We are not able to safely determine your condition over the phone nor are we able to give sound medical advice over the phone. For these safety reasons, if you call for medical advice we will ask you to come to the ED for further evaluation. 3. If you have any questions regarding these discharge instructions please call the ED at [phone]. SAFETY INFORMATION: In the interest of safety, wellness, and injury prevention; we encourage you to wear your sealbelt, if you smoke; quite smoking, and we encourage family to use a protective helmet for bicycling and other sporting events that present an increased risk for head injury. IF YOUR SYMPTOMS WORSEN OR NEW SYMPTOMS DEVELOP, OR YOU HAVE CONCERNS ABOUT YOUR CONDITION; OR IF YOUR CONDITION WORSENS WHILE YOU ARE WAITING FOR YOUR FOLLOW UP APPOINTMENT; EITHER CONTACT YOUR PRIMARY CARE DOCTOR, THE PHYSICIAN WHOSE NAME AND NUMBER YOU WERE GIVEN, OR RETURN TO THE ED IMMEDIATELY. Scripts Ondansetron (ONDANSETRON ODT) 4 Mg Tab.rapdis 1 TAB PO PRN Q6-8HRS for nausea, #16 TAB 0 Refills Prov: MARTÍN LEON APRN 01/25/21 Problem Qualifiers MARTÍN LEON APRN Jan 25, 2021 18:47 DAMARIS JACKSON DO Feb 06, 2021 06:23
[2021-01-25] MEDS ORDERED: LORazepam 1 MG TABLET PO ONE (19:00)
[2021-01-25] MEDS ORDERED: ONDA4TAB12 PO (19:06)
[2021-01-25 19:15] VITALS: BP 150/98
== END 2021-01-25 19:15 | disposition home or self-care (01) ==
LOC: ER 14:58
DX: F10.20 Alcohol dependence, uncomplicated (principal); E87.6 Hypokalemia; R11.0 Nausea; F41.9 Anxiety disorder, unspecified; F32.9 Major depressive disorder, single episode, unspecified; I10 Essential (primary) hypertension; F17.200 Nicotine dependence, unspecified, uncomplicated; Z20.822 Contact with and (suspected) exposure to COVID-19; Y90.5 Blood alcohol level of 100-119 mg/100 ml
CPT/HCPCS: 71045; 80053; 80307; 80329; 81001; 81025; 83690; 83735; 84100; 84484; 85025; 87086; 87426; 93005; 96365; 96366; 96375; 99285; C9803; G0480; J2060; J2405; J2765; J7120; U0003

== ENCOUNTER 2021-06-08 08:12 | Emergency (ER) | payer OTHER ==
[~2021-06-08] VITALS: Ht 170.2 cm; Wt 123.0 kg
[~2021-06-08 08:12] MED LIST changes: +ONDA4TAB12 PO
[2021-06-08] MEDS ORDERED: IV NORMAL SALINE 1,000ML 1,000 ML IV ONE (08:45)
[2021-06-08 09:10] LABS: BASO # 0.1 x10^3/uL (0.0-0.2); BASO % 1 % (0-3); EOS # 0.4 x10^3/uL (0.0-0.7); EOS % 6 % (0-3); HEMATOCRIT 39.9 % (36.0-47.0); HEMOGLOBIN 13.7 g/dL (12.0-15.5); LYMPH # 2.8 x10^3/uL (1.0-4.8); LYMPH % 39 % (24-48); MEAN CORPUSCULAR HEMOGLOBIN 36 pg (25-35); MEAN CORPUSCULAR HGB CONC 35 g/dL (31-37); MEAN CORPUSCULAR VOLUME 105 fL (79-100); MONO # 0.4 x10^3/uL (0.0-1.1); MONO % 6 % (0-9); NEUT # 3.6 x10^3uL (1.8-7.7); NEUT % 49 % (31-73); PLATELET COUNT 129 x10^3/uL (140-400); RED BLOOD COUNT 3.82 x10^6/uL (3.50-5.40); RED CELL DISTRIBUTION WIDTH 13.8 % (11.5-14.5); WHITE BLOOD COUNT 7.3 x10^3/uL (4.0-11.0)
--- NOTE | 2021-06-08 09:23 | PHYS DOC ---
Past History Past Medical History: Anxiety, Bronchitis, Depression, Hypertension Past Surgical History: No Surgical History Smoking: Non-smoker Alcohol Use: Heavy Additional Alcohol Information: approx 1 pint daily General Adult EDM: Chief Complaint: OTHER COMPLAINTS HPI: HPI: Patient is a [age] year old [sex] who presents with [] Review of Systems: Review of Systems: Constitutional: Denies fever or chills Eyes: Denies redness or eye pain HENT: Denies nasal congestion or sore throat Respiratory: Denies cough or shortness of breath Cardiovascular: Denies chest pain or palpitations GI: Denies abdominal pain, nausea, or vomiting : Denies dysuria or hematuria Musculoskeletal: Denies back pain or joint pain Integument: Denies rash or skin lesions Neurologic: Denies headache, focal weakness or sensory changes Complete systems were reviewed and found to be within normal limits, except as documented in this note. Current Medications: Current Meds: Current Medications Medications (Trade) Dose Ordered Sig/Roosevelt Start Time Stop Time Status Last Admin Dose Admin Sodium Chloride 1,000 ml @ 1,000 mls/hr 1X ONCE 06/08/21 08:45 06/08/21 09:44 06/08/21 09:08 1,000 MLS/HR Allergies: Allergies: Allergies Coded Allergies Type Severity Reaction Last Updated Verified No Known Drug Allergies 06/21/20 No Physical Exam: PE: Constitutional: Well developed, well nourished, no acute distress, non-toxic appearance HENT: Normocephalic, atraumatic Eyes: PERRL, EOMI, conjunctiva normal, no discharge Neck: Normal range of motion, no tenderness, supple Lungs & Thorax: No respiratory distress, equal chest rise and fall Abdomen: Soft, no tenderness Skin: Warm, dry, no erythema, no rash Back: No tenderness, no CVA tenderness Extremities: No tenderness, ROM intact, no edema Neurologic: Alert and oriented X 3, normal motor function, normal sensory function, no focal deficits noted Psychologic: Affect normal, judgment normal Current Patient Data: Labs: Laboratory Tests Test 06/08/21 08:57 White Blood Count 7.3 x10^3/uL (4.0-11.0) Red Blood Count 3.82 x10^6/uL (3.50-5.40) Hemoglobin 13.7 g/dL (12.0-15.5) Hematocrit 39.9 % (36.0-47.0) Mean Corpuscular Volume 105 fL (79-100) H Mean Corpuscular Hemoglobin 36 pg (25-35) H Mean Corpuscular Hemoglobin Concent 35 g/dL (31-37) Red Cell Distribution Width 13.8 % (11.5-14.5) Platelet Count 129 x10^3/uL (140-400) L Neutrophils (%) (Auto) 49 % (31-73) Lymphocytes (%) (Auto) 39 % (24-48) Monocytes (%) (Auto) 6 % (0-9) Eosinophils (%) (Auto) 6 % (0-3) H Basophils (%) (Auto) 1 % (0-3) Neutrophils # (Auto) 3.6 x10^3uL (1.8-7.7) Lymphocytes # (Auto) 2.8 x10^3/uL (1.0-4.8) Monocytes # (Auto) 0.4 x10^3/uL (0.0-1.1) Eosinophils # (Auto) 0.4 x10^3/uL (0.0-0.7) Basophils # (Auto) 0.1 x10^3/uL (0.0-0.2) Ethyl Alcohol Level 230 mg/dL (0-10) H Vital Signs: Vital Signs Date Time Temp Pulse Resp B/P (MAP) Pulse Ox O2 Delivery O2 Flow Rate FiO2 06/08/21 08:30 97.8 76 16 136/91 (106) 97 Room Air EKG: EKG: @0901 NSR at 69bpm, NO ST elevation, QRS 106ms, QT/QTc 446/480ms Radiology/Procedures: Radiology/Procedures: CT HEAD WO: No acute intracranial process. Signed by Maury Gibson MD Heart Score: C/O Chest Pain: N/A Course & Med Decision Making: Course & Med Decision Making Pertinent Labs and Imaging studies reviewed. (See chart for details) Patient stable for discharge with outpatient follow-up with PCP. Discussed findings and plan with patient, who acknowledges understanding and agreement. Dragon Disclaimer: Dragon Disclaimer: This electronic medical record was generated, in whole or in part, using a voice recognition dictation system. NIH Stroke Scale: NIH Stroke Scale Response (Comments) Value Level of Consciousness: 0 Alert/Responsive 0 LOC Questions: 0 Answers both correctly 0 LOC Commands: 0 Performs both tasks 0 Best Gaze: 0 Normal 0 Visual: 0 No visual loss 0 Facial Palsy: 0 Normal, symmetrical 0 Motor - Left Arm 0 No drift 0 Motor - Right Arm 0 No drift 0 Motor - Left Leg 0 No drift 0 Motor: Right Leg 0 No drift 0 Limb Ataxia: 0 Absent 0 Sensory: 0 No loss 0 Best Language: 0 Normal 0 Dysathria: 0 Normal 0 Extinction and Inattention: 0 Normal 0 Total 0 Departure Departure: Impression: Primary Impression: Paresthesia of arm Additional Impressions: Alcohol abuse Hypokalemia Hypomagnesemia Disposition: 01 HOME / SELF CARE / HOMELESS Condition: STABLE Referrals: ESTELLA COLBERT MD (PCP) ROYAL MARINELLI MD Patient Instructions: Alcohol and Drug Addiction, Finding Treatment, Alcohol, FAQs, Hypokalemia, Hypomagnesemia, Paresthesia, [id number], Potassium Content of Foods Additional Instructions: Please call [facility] at to seek help for your mental health and/or drug/alcohol abuse. Scripts Potassium Chloride (POTASSIUM CHLORIDE ) 20 Meq Tablet.er 20 MEQ PO DAILY for SUPPLEMENT, #10 TAB Prov: MARTÍN SARKAR DO 06/08/21 MARTÍN SARKAR DO Jun 08, 2021 09:23
[2021-06-08 09:32] LABS: BARBITURATES NEG (NEG); BENZODIAZEPINES NEG (NEG); CANNABINOIDS NEG (NEG); COCAINE NEG (NEG); METHADONE NEG (NEG); OPIATES NEG (NEG); PHENCYCLIDINE NEG (NEG)
[2021-06-08 09:35] LABS: AMPHETAMINE/METHAMPHETAMINE NEG (NEG)
[2021-06-08 09:36] LABS: ALBUMIN 3.1 g/dL (3.4-5.0); ALBUMIN/GLOBULIN RATIO 0.7 (1.0-1.7); CALCIUM 8.1 mg/dL (8.5-10.1); CREATININE 0.8 mg/dL (0.6-1.0); GFR 82.6; MAGNESIUM 1.6 mg/dL (1.8-2.4); TOTAL BILIRUBIN 1.2 mg/dL (0.2-1.0); TOTAL PROTEIN 7.7 g/dL (6.4-8.2)
[2021-06-08 09:39] LABS: POTASSIUM 2.5 mmol/L (3.5-5.1)
[2021-06-08] MEDS ORDERED: POTASSIUM CHLORIDE 20 MEQ TABLET.ER. PO ONE (09:45)
[2021-06-08] MEDS ORDERED: MAGNESIUM SULFATE 2GM 50 ML IV ONE (09:45)
[2021-06-08 09:55] LABS: BACTERIA,URINE 0 /HPF (0-FEW); CLARITY,URINE HAZY; COLOR,URINE AMBER; GLUCOSE,URINE NEG (NEG); NITRITE,URINE NEG (NEG); RBC,URINE OCC /HPF (0-2); SQUAMOUS EPITHELIAL CELL,UR MOD /LPF
[2021-06-08] MEDS ORDERED: POTA20TA4 PO (11:41)
--- NOTE | 2021-06-08 11:43 | RAD ---
CT HEAD/BRAIN WO Date: 06/08/2021 9:05 AM Clinical Indication: headache, right arm numbness/weakness Comparison: None. Technique: 5 mm axial tomographic images were obtained of the head without contrast. These were view ed on brain and bone windows. One or more of the following dose reduction techniques were utilized: A utomated exposure control (AEC), Adjustment of mA and/or kV according to patient size, Use of iterati ve reconstruction technique such as ASiR, CT scan done according to ALARA and image gently/image samaniego ly Findings: The brain parenchyma is normal in attenuation. No intra- or extra-axial mass or fluid collection. No acute hemorrhage. The ventricles are normal in size, shape, and morphology. The block-white matter homer ction is normal. The subarachnoid cisterns are patent. The visualized paranasal sinuses are normal. The visualized portions of the orbits and globes are no rmal. The mastoid air cells are clear. The six sigma black belt engineer topogram shows no lytic lesion or fracture. Impression: No acute intracranial process. Electronically signed by: Maury Gibson MD (06/08/2021 9:36 AM) [id number]
[2021-06-08 11:55] VITALS: BP 131/74
--- NOTE | 2021-06-08 13:22 | EKG ---
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
== END 2021-06-08 12:07 | disposition home or self-care (01) ==
LOC: ER 08:18
DX: E83.42 Hypomagnesemia (principal); E87.6 Hypokalemia; F10.20 Alcohol dependence, uncomplicated; R20.2 Paresthesia of skin; I10 Essential (primary) hypertension; F41.9 Anxiety disorder, unspecified; F32.9 Major depressive disorder, single episode, unspecified; Y90.7 Blood alcohol level of 200-239 mg/100 ml
CPT/HCPCS: 36415; 70450; 80053; 80307; 81001; 81025; 82553; 83605; 83690; 83735; 84443; 84484; 85025; 85610; 85730; 93005; 96361; 96365; 96366; 99285; G0480; J3475; J7030